=== PATIENT | female | born 1970 | race Caucasian/White ===

== ENCOUNTER 2016-07-21 21:01 | Emergency (ER) | payer OTHER ==
[2016-07-21 23:35] VITALS: BP 130/77
== END 2016-07-21 23:35 | disposition home or self-care (01) ==
LOC: ED 21:01
DX: T62.8X1A Toxic effect of other specified noxious substances eaten as food, accidental (unintentional), initial encounter (principal); R11.10 Vomiting, unspecified; R10.9 Unspecified abdominal pain; Y92.511 Restaurant or cafe as the place of occurrence of the external cause
CPT/HCPCS: J1885; Q0162

== ENCOUNTER 2016-08-21 23:23 | Inpatient (IN) | payer OTHER ==
[~2016-08-21] VITALS: Ht 162.6 cm; Wt 83.9 kg
[2016-08-22 00:53] LABS: BASOPHIL % 0.4 % (0-2); PLATELET COUNT 190 x10^3mcL (130-400); RED CELL DISTRIBUTION WIDTH 13.7 % (11.5-14.5)
[2016-08-22 01:13] LABS: CALCIUM 8.6 mg/dL (8.5-10.1); CARBON DIOXIDE 28.2 mmol/L (21-32); CHLORIDE SERUM 106 mmol/L (98-107); CREATININE SERUM 0.7 mg/dL (0.6-1.0); GFR1 > 60 mL/min; GLUCOSE SERUM 102 mg/dL (74-106); SODIUM SERUM 143 mmol/L (136-145)
[2016-08-22 01:17] LABS: ALBUMIN 3.8 g/dL (3.4-5.0); ALKALINE PHOSPHATASE 85 U/L (46-116); ALT/SGPT 20 U/L (14-59); AMYLASE 51 U/L (25-115); AST/SGOT 16 U/L (15-37); BILIRUBIN TOTAL 0.4 mg/dL (0.20-1.00); LIPASE 101 IU/L (73-393); TOTAL PROTEIN, SERUM 7.5 g/dL (6.4-8.2)
[2016-08-22 02:18] LABS: UA SPECIFIC GRAVITY >=1.030 (1.005-1.035); microscopic required? YES; urine erythrocyte NEGATIVE (NEGATIVE)
[2016-08-22 03:50] VITALS: BP 104/75
[2016-08-22 05:07] LABS: CHOLESTEROL/HDL RATIO 3.3
[2016-08-22 05:34] LABS: FREE T4 0.95 ng/dL (0.76-1.46); FREE THYROXINE INDEX 2.3 ug/dL (1.4-4.5); T4(THYROXINE) 7.1 ug/dL (4.7-13.3)
[2016-08-22 05:35] VITALS: BP 104/75
[2016-08-22 09:17] VITALS: BP 100/62
[2016-08-22 09:54] LABS: T3 TOTAL 1.16 ng/mL
[2016-08-22 13:02] VITALS: BP 96/60
[2016-08-22 14:19] LABS: AMPHETAMINE QUAL UR NONE DETECTED (NEG <=1000)
[2016-08-22 17:14] VITALS: BP 95/58
[2016-08-22 21:16] VITALS: BP 98/40
[2016-08-23 06:07] VITALS: BP 93/65
[2016-08-23 06:49] LABS: BASOPHIL % 0.3 % (0-2); PLATELET COUNT 181 x10^3mcL (130-400); RED CELL DISTRIBUTION WIDTH 13.2 % (11.5-14.5)
[2016-08-23 06:53] LABS: CALCIUM 8.1 mg/dL (8.5-10.1); CARBON DIOXIDE 29.2 mmol/L (21-32); CHLORIDE SERUM 106 mmol/L (98-107); CREATININE SERUM 0.6 mg/dL (0.6-1.0); GFR1 > 60 mL/min; GLUCOSE SERUM 91 mg/dL (74-106); PHOSPHOROUS 4.6 mg/dL (2.5-4.9); POTASSIUM SERUM 4.5 mmol/L (3.5-5.1); SODIUM SERUM 141 mmol/L (136-145)
[2016-08-23 09:20] VITALS: BP 97/62
[2016-08-23 14:07] VITALS: BP 96/60
[2016-08-23 17:45] VITALS: BP 98/62
[2016-08-23 21:02] VITALS: BP 106/69
[2016-08-24 05:29] VITALS: BP 92/54
[2016-08-24 07:29] LABS: BASOPHIL % 0.2 % (0-2); PLATELET COUNT 175 x10^3mcL (130-400); RED CELL DISTRIBUTION WIDTH 13.4 % (11.5-14.5)
[2016-08-24 07:36] LABS: CALCIUM 8.5 mg/dL (8.5-10.1); CARBON DIOXIDE 26.9 mmol/L (21-32); CHLORIDE SERUM 106 mmol/L (98-107); CREATININE SERUM 0.7 mg/dL (0.6-1.0); GFR1 > 60 mL/min; GLUCOSE SERUM 98 mg/dL (74-106); POTASSIUM SERUM 4.3 mmol/L (3.5-5.1); SODIUM SERUM 141 mmol/L (136-145)
[2016-08-24 10:20] VITALS: BP 107/69
[2016-08-24 14:44] VITALS: BP 96/57
[2016-08-24 17:25] VITALS: BP 97/55
[2016-08-24 21:13] VITALS: BP 106/64
[2016-08-25 05:50] VITALS: BP 93/51
[2016-08-25 09:37] VITALS: BP 91/58
[2016-08-25 11:26] VITALS: BP 91/58
[2016-08-25] MEDS ORDERED: CIPRO500 MG PO (12:01)
[2016-08-25] MEDS ORDERED: MIRUD PO (12:23)
[2016-08-25 13:09] VITALS: BP 107/69
== END 2016-08-25 16:09 | disposition home or self-care (01) | DRG 690 ==
LOC: ED 23:23 → MU 08-22 03:20 → DU 08-22 03:20 → MU 08-24 08:34
PROVIDERS: Emergency Medicine; ADMIT Family Medicine
DX: N12 Tubulo-interstitial nephritis, not specified as acute or chronic (principal); N17.0 Acute kidney failure with tubular necrosis; K56.41 Fecal impaction; E02 Subclinical iodine-deficiency hypothyroidism; E66.9 Obesity, unspecified; Z68.31 Body mass index [BMI] 31.0-31.9, adult; Z90.49 Acquired absence of other specified parts of digestive tract; Z98.51 Tubal ligation status
CPT/HCPCS: 80307; 83880; 84439; G0480; J0696; J1885; J2270; J2405; J7030; Q0092

== ENCOUNTER 2016-09-11 22:20 | Emergency (ER) | payer OTHER ==
[~2016-09-11 22:20] MED LIST: CIPRO500 MG PO; MIRUD PO
[2016-09-11 22:31] VITALS: BP 124/77
== END 2016-09-11 23:05 | disposition home or self-care (01) ==
LOC: ED 22:20
DX: J02.9 Acute pharyngitis, unspecified (principal); J06.9 Acute upper respiratory infection, unspecified; Z79.899 Other long term (current) drug therapy

== ENCOUNTER 2016-10-02 02:19 | Emergency (ER) | payer OTHER ==
[~2016-10-02] VITALS: Ht 162.6 cm; Wt 86.6 kg
[2016-10-02 03:50] VITALS: BP 95/59
== END 2016-10-02 03:50 | disposition home or self-care (01) ==
LOC: ED 02:19
DX: K21.9 Gastro-esophageal reflux disease without esophagitis (principal); Z90.49 Acquired absence of other specified parts of digestive tract
CPT/HCPCS: Q0092

== ENCOUNTER 2016-10-22 22:18 | Emergency (ER) | payer OTHER ==
[2016-10-23 02:37] LABS: ALBUMIN 3.8 g/dL (3.4-5.0); ALKALINE PHOSPHATASE 71 U/L (46-116); ALT/SGPT 23 U/L (14-59); AST/SGOT 19 U/L (15-37); BILIRUBIN TOTAL 0.5 mg/dL (0.20-1.00); CALCIUM 8.8 mg/dL (8.5-10.1); CARBON DIOXIDE 27.9 mmol/L (21-32); CHLORIDE SERUM 103 mmol/L (98-107); CREATININE SERUM 0.7 mg/dL (0.6-1.0); GFR1 > 60 mL/min; GLUCOSE SERUM 90 mg/dL (74-106); LIPASE 85 IU/L (73-393); SODIUM SERUM 143 mmol/L (136-145); TOTAL PROTEIN, SERUM 7.5 g/dL (6.4-8.2)
[2016-10-23 03:27] VITALS: BP 102/57
== END 2016-10-23 03:27 | disposition home or self-care (01) ==
LOC: ED 22:18
PROVIDERS: Emergency Medicine
DX: E87.6 Hypokalemia (principal); R19.7 Diarrhea, unspecified
CPT/HCPCS: J2405; J7030

== ENCOUNTER 2016-10-26 15:42 | Emergency (ER) | payer OTHER ==
[~2016-10-26] VITALS: Ht 162.6 cm; Wt 83.1 kg
[2016-10-26 16:56] LABS: BASOPHIL % 0.4 % (0-2); PLATELET COUNT 189 x10^3mcL (130-400); RED CELL DISTRIBUTION WIDTH 13.5 % (11.5-14.5)
[2016-10-26 17:06] LABS: CALCIUM 8.8 mg/dL (8.5-10.1); CARBON DIOXIDE 28.6 mmol/L (21-32); CHLORIDE SERUM 106 mmol/L (98-107); CREATININE SERUM 0.6 mg/dL (0.6-1.0); GFR1 > 60 mL/min; GLUCOSE SERUM 94 mg/dL (74-106); POTASSIUM SERUM 3.3 mmol/L (3.5-5.1); SODIUM SERUM 145 mmol/L (136-145)
[2016-10-26 17:10] LABS: ALBUMIN 3.8 g/dL (3.4-5.0); ALKALINE PHOSPHATASE 62 U/L (46-116); ALT/SGPT 22 U/L (14-59); AMYLASE 28 U/L (25-115); AST/SGOT 18 U/L (15-37); BILIRUBIN TOTAL 0.6 mg/dL (0.20-1.00); LIPASE 66 IU/L (73-393); TOTAL PROTEIN, SERUM 7.1 g/dL (6.4-8.2)
[2016-10-26 17:44] VITALS: BP 105/72
== END 2016-10-26 17:45 | disposition home or self-care (01) ==
LOC: ED 15:42
PROVIDERS: Specialist
DX: E87.6 Hypokalemia (principal); R19.7 Diarrhea, unspecified; R10.9 Unspecified abdominal pain; R11.2 Nausea with vomiting, unspecified
CPT/HCPCS: 36415; 83880; J1885; Q0162

== ENCOUNTER 2016-10-28 18:57 | Emergency (ER) | payer OTHER ==
[2016-10-28 19:25] VITALS: BP 121/65
== END 2016-10-28 21:02 | disposition home or self-care (01) ==
LOC: ED 18:57
DX: S39.012A Strain of muscle, fascia and tendon of lower back, initial encounter (principal); Z79.1 Long term (current) use of non-steroidal anti-inflammatories (NSAID); X50.0XXA Overexertion from strenuous movement or load, initial encounter; X50.9XXA Other and unspecified overexertion or strenuous movements or postures, initial encounter; Y93.89 Activity, other specified; Y92.89 Other specified places as the place of occurrence of the external cause; Y99.8 Other external cause status

== ENCOUNTER 2016-11-16 16:38 | Emergency (ER) | payer OTHER ==
[~2016-11-16] VITALS: Ht 162.6 cm; Wt 82.5 kg
[2016-11-16 16:47] VITALS: BP 101/69
== END 2016-11-16 18:09 | disposition home or self-care (01) ==
LOC: ED 16:38
DX: S29.011A Strain of muscle and tendon of front wall of thorax, initial encounter (principal); X58.XXXA Exposure to other specified factors, initial encounter; Y93.89 Activity, other specified; Y99.8 Other external cause status; Y92.89 Other specified places as the place of occurrence of the external cause

== ENCOUNTER 2017-01-20 14:37 | Emergency (ER) | payer OTHER ==
[2017-01-20 14:51] VITALS: BP 102/67
== END 2017-01-20 17:00 | disposition home or self-care (01) ==
LOC: ED 14:37
DX: N39.0 Urinary tract infection, site not specified (principal); Z90.49 Acquired absence of other specified parts of digestive tract

== ENCOUNTER 2017-01-25 21:30 | Emergency (ER) | payer OTHER ==
[2017-01-26 01:01] VITALS: BP 119/68
== END 2017-01-26 01:01 | disposition home or self-care (01) ==
LOC: ED 21:30
DX: R10.13 Epigastric pain (principal); R11.2 Nausea with vomiting, unspecified; Z90.49 Acquired absence of other specified parts of digestive tract
CPT/HCPCS: Q0162

== ENCOUNTER 2017-01-28 19:32 | Emergency (ER) | payer OTHER ==
[~2017-01-28] VITALS: Ht 162.6 cm; Wt 81.2 kg
[2017-01-28 21:08] VITALS: BP 115/74
== END 2017-01-28 21:08 | disposition home or self-care (01) ==
LOC: ED 19:32
DX: M54.5 Low back pain (principal); R30.0 Dysuria; R19.7 Diarrhea, unspecified; Z90.49 Acquired absence of other specified parts of digestive tract

== ENCOUNTER 2017-02-08 21:11 | Emergency (ER) | payer OTHER ==
[2017-02-09 00:28] VITALS: BP 118/68
== END 2017-02-09 00:28 | disposition home or self-care (01) ==
LOC: ED 21:11
DX: D25.9 Leiomyoma of uterus, unspecified (principal); Z90.89 Acquired absence of other organs

== ENCOUNTER 2017-03-29 20:12 | Emergency (ER) | payer OTHER ==
[2017-03-30 00:24] VITALS: BP 113/75
== END 2017-03-30 00:24 | disposition home or self-care (01) ==
LOC: ED 20:12
DX: S39.012A Strain of muscle, fascia and tendon of lower back, initial encounter (principal); X58.XXXA Exposure to other specified factors, initial encounter; Y93.89 Activity, other specified; Y99.8 Other external cause status; Y92.89 Other specified places as the place of occurrence of the external cause
CPT/HCPCS: J1885

== ENCOUNTER 2017-04-05 20:48 | Emergency (ER) | payer OTHER ==
[~2017-04-05] VITALS: Ht 162.6 cm; Wt 63.5 kg
[2017-04-05 21:28] VITALS: Ht 162.6 cm; Wt 63.5 kg
[2017-04-05 23:25] LABS: BASOPHIL % 0.2 % (0-2); PLATELET COUNT 219 x10^3mcL (130-400); RED CELL DISTRIBUTION WIDTH 14.3 % (11.5-14.5)
[2017-04-05 23:32] LABS: CALCIUM 8.4 mg/dL (8.5-10.1); CARBON DIOXIDE 29.7 mmol/L (21-32); CHLORIDE SERUM 104 mmol/L (98-107); CREATININE SERUM 0.7 mg/dL (0.6-1.0); GFR1 > 60 mL/min; GLUCOSE SERUM 111 mg/dL (74-106); POTASSIUM SERUM 3.4 mmol/L (3.5-5.1); SODIUM SERUM 141 mmol/L (136-145)
[2017-04-05 23:45] LABS: ALBUMIN 3.6 g/dL (3.4-5.0); ALKALINE PHOSPHATASE 100 U/L (46-116); ALT/SGPT 34 U/L (14-59); AST/SGOT 22 U/L (15-37); BILIRUBIN TOTAL 0.26 mg/dL (0.20-1.00); MAGNESIUM 2.1 mg/dL (1.8-2.4); TOTAL PROTEIN, SERUM 7.5 g/dL (6.4-8.2)
[2017-04-06 00:45] LABS: AMPHETAMINE QUAL UR NONE DETECTED (NEG <=1000)
[2017-04-06 00:50] VITALS: BP 125/68
== END 2017-04-06 00:50 | disposition home or self-care (01) ==
LOC: ED 20:48
PROVIDERS: Emergency Medicine
DX: R25.2 Cramp and spasm (principal); E86.0 Dehydration; E87.6 Hypokalemia; E83.51 Hypocalcemia; Z87.448 Personal history of other diseases of urinary system
CPT/HCPCS: 36415; Q0092

== ENCOUNTER 2017-04-13 17:34 | Emergency (ER) | payer OTHER ==
[~2017-04-13] VITALS: Ht 162.6 cm; Wt 86.2 kg
[2017-04-13 17:40] VITALS: Ht 162.6 cm; Wt 86.2 kg
[2017-04-13 22:12] LABS: BASOPHIL % 0.2 % (0-2); PLATELET COUNT 244 x10^3mcL (130-400); RED CELL DISTRIBUTION WIDTH 14.9 % (11.5-14.5)
[2017-04-13 22:15] LABS: CALCIUM 8.6 mg/dL (8.5-10.1); CARBON DIOXIDE 27.7 mmol/L (21-32); CHLORIDE SERUM 103 mmol/L (98-107); CREATININE SERUM 0.6 mg/dL (0.6-1.0); GFR1 > 60 mL/min; GLUCOSE SERUM 123 mg/dL (74-106); POTASSIUM SERUM 3.8 mmol/L (3.5-5.1); SODIUM SERUM 140 mmol/L (136-145)
[2017-04-13 22:27] LABS: ALBUMIN 3.8 g/dL (3.4-5.0); ALKALINE PHOSPHATASE 113 U/L (46-116); ALT/SGPT 37 U/L (14-59); AST/SGOT 24 U/L (15-37); BILIRUBIN TOTAL 0.2 mg/dL (0.20-1.00); MAGNESIUM 2.3 mg/dL (1.8-2.4); T4(THYROXINE) 5.5 ug/dL (4.7-13.3)
[2017-04-13 22:57] LABS: UA SPECIFIC GRAVITY >=1.030 (1.005-1.035); urine erythrocyte NEGATIVE (NEGATIVE)
[2017-04-13 22:59] LABS: microscopic required? YES
[2017-04-13 23:09] LABS: AMPHETAMINE QUAL UR NONE DETECTED (NEG <=1000)
[2017-04-14 01:13] VITALS: BP 125/86
== END 2017-04-14 01:13 | disposition home or self-care (01) ==
LOC: ED 17:34
PROVIDERS: Emergency Medicine
DX: R25.2 Cramp and spasm (principal); Z90.49 Acquired absence of other specified parts of digestive tract
CPT/HCPCS: 82962; 83880; G0480; J1885; J7030; Q0092

== ENCOUNTER 2017-05-24 20:35 | Emergency (ER) | payer OTHER ==
[~2017-05-24] VITALS: Ht 162.6 cm; Wt 89.0 kg
[2017-05-24 20:57] VITALS: Ht 162.6 cm; Wt 89.0 kg
[2017-05-24 23:31] VITALS: BP 118/70
== END 2017-05-24 23:31 | disposition home or self-care (01) ==
LOC: ED 20:35
DX: S39.012A Strain of muscle, fascia and tendon of lower back, initial encounter (principal); X58.XXXA Exposure to other specified factors, initial encounter; Y93.89 Activity, other specified; Y99.8 Other external cause status; Y92.89 Other specified places as the place of occurrence of the external cause

== ENCOUNTER 2017-06-08 16:27 | Emergency (ER) | payer OTHER ==
[~2017-06-08] VITALS: Ht 162.6 cm; Wt 82.5 kg
[2017-06-08 16:35] VITALS: BP 118/72; Ht 162.6 cm; Wt 82.5 kg
== END 2017-06-08 17:40 | disposition home or self-care (01) ==
LOC: ED 16:27
DX: J06.9 Acute upper respiratory infection, unspecified (principal); Z90.49 Acquired absence of other specified parts of digestive tract

== ENCOUNTER 2017-06-16 19:06 | Emergency (ER) | payer OTHER ==
[~2017-06-16] VITALS: Ht 162.6 cm; Wt 87.3 kg
[2017-06-16 19:41] VITALS: Ht 162.6 cm; Wt 87.3 kg
[2017-06-16 21:57] VITALS: BP 133/76
== END 2017-06-16 21:57 | disposition home or self-care (01) ==
LOC: ED 19:06
DX: K21.9 Gastro-esophageal reflux disease without esophagitis (principal); Z90.49 Acquired absence of other specified parts of digestive tract

== ENCOUNTER 2017-06-21 21:16 | Emergency (ER) | payer OTHER ==
[~2017-06-21] VITALS: Ht 162.6 cm; Wt 89.3 kg
[2017-06-21 21:40] VITALS: Ht 162.6 cm; Wt 89.3 kg
[2017-06-22 01:00] VITALS: BP 114/73
== END 2017-06-22 01:00 | disposition home or self-care (01) ==
LOC: ED 21:16
DX: R32 Unspecified urinary incontinence (principal); N83.202 Unspecified ovarian cyst, left side

== ENCOUNTER 2017-08-04 18:42 | Emergency (ER) | payer OTHER ==
[~2017-08-04] VITALS: Ht 162.6 cm; Wt 89.1 kg
[2017-08-04 19:43] VITALS: BP 105/73
[2017-08-04 20:13] LABS: UA SPECIFIC GRAVITY 1.015 (1.005-1.035); microscopic required? YES; urine erythrocyte NEGATIVE (NEGATIVE)
== END 2017-08-04 19:43 | disposition home or self-care (01) ==
LOC: ED 18:42
PROVIDERS: Emergency Medicine
DX: M54.5 Low back pain (principal); R10.30 Lower abdominal pain, unspecified
CPT/HCPCS: J1885

== ENCOUNTER 2017-08-09 15:14 | Emergency (ER) | payer OTHER ==
[~2017-08-09] VITALS: Ht 162.6 cm; Wt 88.0 kg
[2017-08-09 15:55] VITALS: BP 146/69; Ht 162.6 cm; Wt 88.0 kg
== END 2017-08-09 17:00 | disposition home or self-care (01) ==
LOC: ED 15:14
DX: N39.0 Urinary tract infection, site not specified (principal)

== ENCOUNTER 2017-08-13 16:46 | Emergency (ER) | payer OTHER ==
[~2017-08-13] VITALS: Ht 162.6 cm; Wt 88.9 kg
[2017-08-13 18:21] VITALS: BP 105/63
== END 2017-08-13 18:22 | disposition home or self-care (01) ==
LOC: ED 16:46
DX: T62.91XA Toxic effect of unspecified noxious substance eaten as food, accidental (unintentional), initial encounter (principal); Y92.89 Other specified places as the place of occurrence of the external cause; R11.0 Nausea; R42 Dizziness and giddiness; R51 Headache
CPT/HCPCS: J1885; J2765; Q0162

== ENCOUNTER 2017-10-22 21:17 | Emergency (ER) | payer OTHER ==
[~2017-10-22] VITALS: Ht 162.6 cm; Wt 89.3 kg
[2017-10-22 21:52] VITALS: BP 126/76; Ht 162.6 cm; Wt 89.3 kg
== END 2017-10-23 00:34 | disposition home or self-care (01) ==
LOC: ED 21:17
DX: S39.012A Strain of muscle, fascia and tendon of lower back, initial encounter (principal); B35.3 Tinea pedis; Z90.49 Acquired absence of other specified parts of digestive tract; X58.XXXA Exposure to other specified factors, initial encounter; Y93.89 Activity, other specified; Y92.89 Other specified places as the place of occurrence of the external cause; Y99.8 Other external cause status

== ENCOUNTER 2018-03-23 21:24 | Emergency (ER) | payer OTHER ==
[~2018-03-23] VITALS: Ht 162.6 cm; Wt 87.5 kg
[2018-03-23 21:34] VITALS: Ht 162.6 cm; Wt 87.5 kg
[2018-03-23 22:33] VITALS: BP 121/74
== END 2018-03-23 22:34 | disposition home or self-care (01) ==
LOC: ED 21:24
DX: R19.7 Diarrhea, unspecified (principal); F41.9 Anxiety disorder, unspecified; F32.9 Major depressive disorder, single episode, unspecified; R10.9 Unspecified abdominal pain; R53.1 Weakness; D25.9 Leiomyoma of uterus, unspecified; Z90.49 Acquired absence of other specified parts of digestive tract; Z98.890 Other specified postprocedural states

== ENCOUNTER 2018-03-30 14:05 | Emergency (ER) | payer OTHER ==
[~2018-03-30] VITALS: Ht 162.6 cm; Wt 88.0 kg
[2018-03-30 14:14] VITALS: BP 90/57; Ht 162.6 cm; Wt 88.0 kg
== END 2018-03-30 15:41 | disposition home or self-care (01) ==
LOC: ED 14:05
DX: M54.5 Low back pain (principal); F41.9 Anxiety disorder, unspecified; F32.9 Major depressive disorder, single episode, unspecified; Z90.49 Acquired absence of other specified parts of digestive tract; Z98.890 Other specified postprocedural states

== ENCOUNTER 2018-04-07 19:29 | Emergency (ER) | payer OTHER ==
[~2018-04-07] VITALS: Ht 162.6 cm; Wt 88.5 kg
[2018-04-07 19:35] VITALS: Ht 162.6 cm; Wt 88.5 kg
[2018-04-07 21:13] LABS: BASOPHIL % 0.4 % (0-2); PLATELET COUNT 271 x10^3mcL (130-400)
[2018-04-07 21:19] LABS: AMPHETAMINE QUAL UR NONE DETECTED (See below)
[2018-04-07 21:34] LABS: CALCIUM 8.4 mg/dL (8.5-10.1); CARBON DIOXIDE 26.5 mmol/L (21-32); CHLORIDE SERUM 107 mmol/L (98-107); CREATININE SERUM 0.7 mg/dL (0.6-1.0); GFR1 > 60 mL/min; GLUCOSE SERUM 110 mg/dL (74-106); POTASSIUM SERUM 3.7 mmol/L (3.5-5.1); SODIUM SERUM 144 mmol/L (136-145)
[2018-04-07 21:38] LABS: ALBUMIN 3.7 g/dL (3.4-5.0); ALKALINE PHOSPHATASE 133 U/L (46-116); ALT/SGPT 69 U/L (14-59); AST/SGOT 46 U/L (15-37); TOTAL PROTEIN, SERUM 7.9 g/dL (6.4-8.2)
[2018-04-08 01:20] VITALS: BP 111/70
== END 2018-04-08 01:20 | disposition home or self-care (01) ==
LOC: ED 19:29
PROVIDERS: Emergency Medicine
DX: F41.9 Anxiety disorder, unspecified (principal); F32.9 Major depressive disorder, single episode, unspecified; B85.0 Pediculosis due to Pediculus humanus capitis; N83.209 Unspecified ovarian cyst, unspecified side; Z90.49 Acquired absence of other specified parts of digestive tract
CPT/HCPCS: 36415; 83880

== ENCOUNTER 2018-04-11 12:57 | Emergency (ER) | payer OTHER ==
[~2018-04-11] VITALS: Ht 162.6 cm; Wt 86.6 kg
[2018-04-11 13:05] VITALS: Ht 162.6 cm; Wt 86.6 kg
[2018-04-11 15:17] VITALS: BP 127/69
== END 2018-04-11 15:17 | disposition home or self-care (01) ==
LOC: ED 12:57
DX: K52.9 Noninfective gastroenteritis and colitis, unspecified (principal); N83.209 Unspecified ovarian cyst, unspecified side; F41.9 Anxiety disorder, unspecified; F32.9 Major depressive disorder, single episode, unspecified; Z90.49 Acquired absence of other specified parts of digestive tract
CPT/HCPCS: J1885

== ENCOUNTER 2018-04-29 14:36 | Emergency (ER) | payer SELFPAY ==
[~2018-04-29] VITALS: Ht 162.6 cm; Wt 86.2 kg
[2018-04-29 14:56] VITALS: BP 132/79; Ht 162.6 cm; Wt 86.2 kg
== END 2018-04-29 15:32 | disposition home or self-care (01) ==
LOC: ED 14:36
DX: S39.011A Strain of muscle, fascia and tendon of abdomen, initial encounter (principal); J06.9 Acute upper respiratory infection, unspecified; N83.209 Unspecified ovarian cyst, unspecified side; F41.9 Anxiety disorder, unspecified; F32.9 Major depressive disorder, single episode, unspecified; Z90.49 Acquired absence of other specified parts of digestive tract; X58.XXXA Exposure to other specified factors, initial encounter; Y93.89 Activity, other specified; Y92.89 Other specified places as the place of occurrence of the external cause; Y99.8 Other external cause status

== ENCOUNTER 2018-08-25 19:53 | Emergency (ER) | payer SELFPAY ==
[~2018-08-25] VITALS: Ht 162.6 cm; Wt 84.8 kg
[2018-08-25 20:07] VITALS: Ht 162.6 cm; Wt 84.8 kg
[2018-08-25 20:31] VITALS: BP 128/64
== END 2018-08-25 20:31 | disposition home or self-care (01) ==
LOC: ED 19:53
DX: J40 Bronchitis, not specified as acute or chronic (principal); F41.9 Anxiety disorder, unspecified; F32.9 Major depressive disorder, single episode, unspecified; D25.9 Leiomyoma of uterus, unspecified; N83.209 Unspecified ovarian cyst, unspecified side; Z98.84 Bariatric surgery status; Z90.49 Acquired absence of other specified parts of digestive tract
CPT/HCPCS: J1100

== ENCOUNTER 2018-08-29 21:29 | Emergency (ER) | payer SELFPAY ==
[~2018-08-29] VITALS: Ht 162.6 cm; Wt 83.5 kg
[2018-08-29 21:55] VITALS: Ht 162.6 cm; Wt 83.5 kg
[2018-08-29 22:57] LABS: BASOPHIL % 0.6 % (0-2); PLATELET COUNT 199 x10^3mcL (130-400); RED CELL DISTRIBUTION WIDTH 14.4 % (11.5-14.5)
[2018-08-29 23:02] LABS: CALCIUM 9.3 mg/dL (8.5-10.1); CARBON DIOXIDE 30.3 mmol/L (21-32); CHLORIDE SERUM 106 mmol/L (98-107); CREATININE SERUM 0.7 mg/dL (0.6-1.0); GFR1 > 60 mL/min; GLUCOSE SERUM 101 mg/dL (74-106); SODIUM SERUM 142 mmol/L (136-145)
[2018-08-29 23:06] LABS: ALBUMIN 3.8 g/dL (3.4-5.0); ALKALINE PHOSPHATASE 91 U/L (46-116); ALT/SGPT 24 U/L (14-59); AST/SGOT 14 U/L (15-37); BILIRUBIN TOTAL 0.29 mg/dL (0.20-1.00); LIPASE 92 IU/L (73-393); TOTAL PROTEIN, SERUM 7.4 g/dL (6.4-8.2)
[2018-08-29 23:37] VITALS: BP 120/78
== END 2018-08-29 23:37 | disposition home or self-care (01) ==
LOC: ED 21:29
PROVIDERS: Emergency Medicine
DX: R19.7 Diarrhea, unspecified (principal); F41.9 Anxiety disorder, unspecified; F32.9 Major depressive disorder, single episode, unspecified; Z90.49 Acquired absence of other specified parts of digestive tract; Z98.51 Tubal ligation status
CPT/HCPCS: 36415; J0500

== ENCOUNTER 2018-09-26 20:18 | Emergency (ER) | payer OTHER ==
[~2018-09-26] VITALS: Ht 162.6 cm; Wt 84.8 kg
[2018-09-26 21:44] LABS: BASOPHIL % 0.3 % (0-2); PLATELET COUNT 192 x10^3mcL (130-400); RED CELL DISTRIBUTION WIDTH 13.6 % (11.5-14.5)
[2018-09-26 21:49] LABS: CALCIUM 9.4 mg/dL (8.5-10.1); CARBON DIOXIDE 25.4 mmol/L (21-32); CHLORIDE SERUM 107 mmol/L (98-107); CREATININE SERUM 0.9 mg/dL (0.6-1.0); GFR1 > 60 mL/min; GLUCOSE SERUM 106 mg/dL (74-106); POTASSIUM SERUM 3.8 mmol/L (3.5-5.1); SODIUM SERUM 143 mmol/L (136-145)
[2018-09-26 21:53] LABS: ALBUMIN 3.7 g/dL (3.4-5.0); ALKALINE PHOSPHATASE 107 U/L (46-116); ALT/SGPT 22 U/L (14-59); AST/SGOT 12 U/L (15-37); TOTAL PROTEIN, SERUM 7.5 g/dL (6.4-8.2)
[2018-09-26 22:04] LABS: FREE T4 0.71 ng/dL (0.76-1.46); FREE THYROXINE INDEX 1.6 ug/dL (1.4-4.5); T4(THYROXINE) 4.7 ug/dL (4.7-13.3)
[2018-09-26 22:17] LABS: T3 TOTAL 0.95 ng/mL
[2018-09-26 23:32] VITALS: BP 97/53
== END 2018-09-26 23:32 | disposition home or self-care (01) ==
LOC: ED 20:18
PROVIDERS: Emergency Medicine
DX: R53.1 Weakness (principal); N39.0 Urinary tract infection, site not specified; E03.9 Hypothyroidism, unspecified; E11.9 Type 2 diabetes mellitus without complications; F41.9 Anxiety disorder, unspecified; F32.9 Major depressive disorder, single episode, unspecified; Z90.49 Acquired absence of other specified parts of digestive tract; Z98.51 Tubal ligation status
CPT/HCPCS: 36415; 84439

== ENCOUNTER 2018-10-03 19:47 | Emergency (ER) | payer OTHER ==
[~2018-10-03] VITALS: Ht 162.6 cm; Wt 84.4 kg
[2018-10-03 20:05] VITALS: Ht 162.6 cm; Wt 84.4 kg
[2018-10-03 21:38] VITALS: BP 101/63
== END 2018-10-03 21:38 | disposition home or self-care (01) ==
LOC: ED 19:47
DX: S83.92XA Sprain of unspecified site of left knee, initial encounter (principal); E11.9 Type 2 diabetes mellitus without complications; Z90.49 Acquired absence of other specified parts of digestive tract; F41.9 Anxiety disorder, unspecified; F32.9 Major depressive disorder, single episode, unspecified; D25.9 Leiomyoma of uterus, unspecified; X58.XXXA Exposure to other specified factors, initial encounter; Y93.89 Activity, other specified; Y92.89 Other specified places as the place of occurrence of the external cause; Y99.8 Other external cause status

== ENCOUNTER 2018-11-15 19:10 | Emergency (ER) | payer OTHER ==
[~2018-11-15] VITALS: Ht 162.6 cm; Wt 84.8 kg
[2018-11-15 19:33] VITALS: Ht 162.6 cm; Wt 84.8 kg
[2018-11-15 20:31] LABS: BASOPHIL % 0.4 % (0-2); PLATELET COUNT 195 x10^3mcL (130-400); RED CELL DISTRIBUTION WIDTH 13.6 % (11.5-14.5)
[2018-11-15 20:42] LABS: CALCIUM 8.7 mg/dL (8.5-10.1); CARBON DIOXIDE 30.2 mmol/L (21-32); CHLORIDE SERUM 108 mmol/L (98-107); CREATININE SERUM 0.9 mg/dL (0.6-1.0); GFR1 > 60 mL/min; GLUCOSE SERUM 86 mg/dL (74-106); POTASSIUM SERUM 3.9 mmol/L (3.5-5.1); SODIUM SERUM 146 mmol/L (136-145)
[2018-11-15 20:47] LABS: ALBUMIN 3.9 g/dL (3.4-5.0); ALKALINE PHOSPHATASE 85 U/L (46-116); ALT/SGPT 24 U/L (14-59); AST/SGOT 17 U/L (15-37); BILIRUBIN TOTAL 0.5 mg/dL (0.20-1.00); TOTAL PROTEIN, SERUM 7.5 g/dL (6.4-8.2)
[2018-11-15 21:17] LABS: microscopic required? NO
[2018-11-15 21:30] LABS: FREE T4 0.75 ng/dL (0.76-1.46)
[2018-11-15 21:43] LABS: UA SPECIFIC GRAVITY >=1.030 (1.005-1.035); urine erythrocyte NEGATIVE (NEGATIVE)
[2018-11-15 22:19] VITALS: BP 95/58
== END 2018-11-15 22:19 | disposition home or self-care (01) ==
LOC: ED 19:10
PROVIDERS: Emergency Medicine
DX: R42 Dizziness and giddiness (principal); R53.1 Weakness; E03.9 Hypothyroidism, unspecified; E11.9 Type 2 diabetes mellitus without complications; F41.9 Anxiety disorder, unspecified; F32.9 Major depressive disorder, single episode, unspecified; Z90.49 Acquired absence of other specified parts of digestive tract
CPT/HCPCS: 82962; 84439; J7030; J8597

== ENCOUNTER 2018-11-21 20:08 | Emergency (ER) | payer OTHER ==
[~2018-11-21] VITALS: Ht 162.6 cm; Wt 84.4 kg
[2018-11-21 20:13] VITALS: Ht 162.6 cm; Wt 84.4 kg
[2018-11-21 21:59] VITALS: BP 93/61
== END 2018-11-21 21:59 | disposition home or self-care (01) ==
LOC: ED 20:08
DX: G44.209 Tension-type headache, unspecified, not intractable (principal); E11.9 Type 2 diabetes mellitus without complications; F41.9 Anxiety disorder, unspecified; F32.9 Major depressive disorder, single episode, unspecified; Z90.49 Acquired absence of other specified parts of digestive tract
CPT/HCPCS: J1885; J2765

== ENCOUNTER 2018-12-09 13:00 | Emergency (ER) | payer SELFPAY ==
[~2018-12-09] VITALS: Ht 162.6 cm; Wt 85.7 kg
[2018-12-09 13:18] VITALS: Ht 162.6 cm; Wt 85.7 kg
[2018-12-09 15:31] VITALS: BP 115/72
== END 2018-12-09 15:32 | disposition home or self-care (01) ==
LOC: ED 13:00
DX: K29.70 Gastritis, unspecified, without bleeding (principal); E11.9 Type 2 diabetes mellitus without complications; F41.9 Anxiety disorder, unspecified; F32.9 Major depressive disorder, single episode, unspecified; Z98.890 Other specified postprocedural states; Z98.51 Tubal ligation status

== ENCOUNTER 2019-10-09 16:49 | Emergency (ER) | payer OTHER ==
[~2019-10-09] VITALS: Ht 162.6 cm; Wt 94.8 kg
[2019-10-09 17:11] VITALS: Ht 162.6 cm; Wt 94.8 kg
[2019-10-09 18:02] LABS: BASOPHIL % 0.4 % (0-2); PLATELET COUNT 207 x10^3mcL (130-400); RED CELL DISTRIBUTION WIDTH 13.6 % (11.5-14.5)
[2019-10-09 18:07] LABS: CALCIUM 8.8 mg/dL (8.5-10.1); CARBON DIOXIDE 25.7 mmol/L (21-32); CHLORIDE SERUM 105 mmol/L (98-107); CREATININE SERUM 0.7 mg/dL (0.6-1.0); GFR1 > 60 mL/min; GLUCOSE SERUM 103 mg/dL (74-106); POTASSIUM SERUM 3.8 mmol/L (3.5-5.1); SODIUM SERUM 139 mmol/L (136-145)
[2019-10-09 18:11] LABS: ALBUMIN 3.8 g/dL (3.4-5.0); ALKALINE PHOSPHATASE 101 U/L (46-116); ALT/SGPT 33 U/L (14-59); AST/SGOT 18 U/L (15-37); BILIRUBIN TOTAL 0.29 mg/dL (0.20-1.00); TOTAL PROTEIN, SERUM 7.4 g/dL (6.4-8.2)
[2019-10-09 18:19] LABS: FREE T4 1.11 ng/dL (0.76-1.46); FREE THYROXINE INDEX 2.3 ug/dL (1.4-4.5); T4(THYROXINE) 6.7 ug/dL (4.7-13.3)
[2019-10-09 18:46] LABS: T3 TOTAL 1.08 ng/mL
[2019-10-09 19:42] VITALS: BP 122/81
== END 2019-10-09 19:42 | disposition home or self-care (01) ==
LOC: ED 16:49
PROVIDERS: Emergency Medicine
DX: R53.1 Weakness (principal); E11.9 Type 2 diabetes mellitus without complications; Z98.890 Other specified postprocedural states; Z90.49 Acquired absence of other specified parts of digestive tract
CPT/HCPCS: 36415; 82962; 84439

== ENCOUNTER 2019-10-23 17:58 | Emergency (ER) | payer OTHER, SELFPAY ==
[~2019-10-23] VITALS: Ht 162.6 cm; Wt 93.4 kg
[2019-10-23 18:24] VITALS: BP 102/70; Ht 162.6 cm; Wt 93.4 kg
== END 2019-10-23 18:56 | disposition home or self-care (01) ==
LOC: ED 17:58
DX: U07.1 COVID-19 (principal); J32.9 Chronic sinusitis, unspecified; N83.209 Unspecified ovarian cyst, unspecified side; E11.9 Type 2 diabetes mellitus without complications; Z90.49 Acquired absence of other specified parts of digestive tract; Z98.84 Bariatric surgery status
CPT/HCPCS: U0003-CS

== ENCOUNTER 2019-11-15 14:09 | Emergency (ER) | payer OTHER, SELFPAY ==
[~2019-11-15] VITALS: Ht 162.6 cm; Wt 90.3 kg
[2019-11-15 14:29] VITALS: BP 120/75; Ht 162.6 cm; Wt 90.3 kg
== END 2019-11-15 15:00 | disposition still patient (30) ==
LOC: ED 14:09
DX: R06.02 Shortness of breath (principal); E11.9 Type 2 diabetes mellitus without complications; Z20.828 Contact with and (suspected) exposure to other viral communicable diseases; Z98.84 Bariatric surgery status; N83.209 Unspecified ovarian cyst, unspecified side
CPT/HCPCS: U0003-CS

== ENCOUNTER 2019-12-08 21:41 | Emergency (ER) | payer OTHER, SELFPAY ==
[~2019-12-08] VITALS: Ht 162.6 cm; Wt 88.9 kg
[2019-12-08 21:54] VITALS: Ht 162.6 cm; Wt 88.9 kg
[2019-12-08 23:48] VITALS: BP 116/71
== END 2019-12-08 23:48 | disposition home or self-care (01) ==
LOC: ED 21:41
DX: R06.02 Shortness of breath (principal); R05 Cough; E11.9 Type 2 diabetes mellitus without complications; Z90.49 Acquired absence of other specified parts of digestive tract; Z98.84 Bariatric surgery status

== ENCOUNTER 2020-03-18 13:42 | Emergency (ER) | payer OTHER, SELFPAY ==
[~2020-03-18] VITALS: Ht 162.6 cm; Wt 94.3 kg
[2020-03-18 13:44] VITALS: BP 114/75; Ht 162.6 cm; Wt 94.3 kg
== END 2020-03-18 14:47 | disposition home or self-care (01) ==
LOC: ED 13:42
DX: Z20.828 Contact with and (suspected) exposure to other viral communicable diseases (principal); E11.9 Type 2 diabetes mellitus without complications; F32.9 Major depressive disorder, single episode, unspecified; Z90.49 Acquired absence of other specified parts of digestive tract; Z98.890 Other specified postprocedural states
CPT/HCPCS: U0003